=== PATIENT | female | born 1960 | race Caucasian/White ===

== ENCOUNTER → 2016-12-26 | Day surgery (SDC) | payer OTHER ==
[~2016-12-26] VITALS: Ht 177.8 cm; Wt 92.7 kg
[~2016-12-26] MED LIST: *HYDROmorphone PF 1 MG VIAL PERIprocedural Use ONLY ONE; *ONDANSETRON 4 MG VIAL PERIprocedural Use ONLY ONE; *PROMETHAZINE 25 MG/ML VIAL PERIprocedural use ONLY ONE; ACETAMINOPHEN 1000 MG/100 ML VIAL IV ONE; BUPIVACAINE HCL PF 0.25% 30 ML VIAL ONE; CHLORHEXIDINE GLUCONATE 2 % 1 PACK (2 CLOTHS) TOPICAL PRN; CHLORHEXIDINE GLUCONATE 4% SOLN 120 ML BTL TOPICAL SCH; DEXAMETHASONE SOD PHOS 4 MG/ML VIAL ONE; DO NOT ADM ANY ANTICOAGULANT DRUGS PRN; FAMOTIDINE 20 MG/2 ML VIAL ONE; HYDR25TA5 PO; INSULIN HUMAN REGULAR 1,000 UNITS/10 ML VIAL SQ PRN; KETOROLAC TROMETHAMINE 30 MG/ML (IVP) VIAL IVP ONE; LACTATED RINGER'S 1000 ML IV PRN; LEVO75TA3 PO; LIDOCAINE HCL 1% 50 ML VIAL ONE; METOPROLOL TARTRATE 25 MG TAB PO PRN; MIDAZOLAM HCL 2 MG/2 ML VIAL ONE; MORPHINE SULFATE 4 MG/ML INJ IV PUSH PRN; NEOSTIGMINE 3 MG/3 ML SYR IV ONE; ONDANSETRON HCL 4 MG/2 ML VIAL IV PRN; ONDANSETRON HCL 4 MG/2 ML VIAL IV PUSH ONE; PERC5TAB12 PO; POVIDONE IODINE 5% (ANTISEPSIS KIT) 4 APPLICATIONS EACH NARE PRN; PROPOFOL 200 MG/20 ML AMP IV ONE; PROT40TA PO; SODIUM CHLORID 0.9% 500 ML IV PRN; SODIUM CHLORIDE 0.9% FLUSH 10 ML FLUSH IV FLUSH PRN; SODIUM CHLORIDE 0.9% FLUSH 10 ML FLUSH IV FLUSH SCH; VANCOMYCIN 1000 MG/NS 250 ML (for <70 kg) IV SCH; ceFAZolin 2 GM PREMIX 50 ML IV SCH; fentaNYL CITRATE 250 MCG/5 ML AMP ONE; oxyCODONE/ACETAMINOPHEN 5 MG/325 MG TAB PO PRN
[2016-12-26 10:50] VITALS: BP 140/84; PULSE 65; RESP 18; TEMP 98.3; O2SAT 97
--- NOTE | 2016-12-26 11:15 | EKG ---
Date Performed: 12/26/2016 Time Performed: 10:18:37 PTAGE: 56 years EKG: SINUS BRADYCARDIA MINIMAL ST DEPRESSION BORDERLINE ECG PREVIOUS TRACING : 05/09/2012 10.55 Compared to the previous tracing, previously non-specific S T/T wave changes, now with minimal ST depressions DOCTOR: Estuardo Blank Interpretating Date/Time 12/26/2016 11:14:39
--- NOTE | 2016-12-26 14:57 | PD.OP ---
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 The operative extremity was then confirmed with the patient, the operative surgeon, anesthesia, and nursing staff. The patient was then transferred to the operative table and placed in the prone position. All bony prominences were well padded at this time. A nonsterile tourniquet was placed on the RIGHT lower extremity The lower extremity was sterilely prepped and draped in the usual sterile fashion. The extremity was elevated and the tourniquet was inflated to 250 mmHg. After all bony and soft tissue land robertson were identified, a 6 cm longitudinal incision was made in line with the Achilles tendon. Achilles tendon was split in half from 3-4 cm proximally and extending distally onto its insertion on the calcaneus. Both halves of the tendon were detached distally exposing a large calcaneal exostosis as well as a large Fahad exostosis. Using an oscillating saw the Fahad as well as the posterior calcaneal exostosis were resected. The ends of the tendon were carefully debrided and cleaned off any devitalized and calcified tissue. 2 loaded swivel lock lock 4.4 mm arthrex anchors were placed about 1cm proximal to the achiles insertion. The sutures were double ended and passed through the center of each halves of the free tendon. 2 knotless swivel lock anchors holes were drilled and placed at the Achilles insertion site. While holding tension, one limb from each swivel lock anchors were loaded onto the knotless anchors and secured in place. The repair was excellent and remained intact through plantar flexion. The split tendon was repaired with #1 Vicryl. Tourniquet was released. The wound was thoroughly irrigated. Hemostasis obtained. The wound was closed with 3-0 Vicryl in the subcutaneous and 4-0 Monocryl. Sterile dressing was applied. Patient was placed in a well-padded short leg posterior splint in resting 30 deg plantar flexed position. The patient was transferred back Postanesthesia Care Unit. The patient tolerated the procedure well. There were no complications. Implants: 4x Swivel lock Arthrex suture anchor Leander Kim Jr., MD Dec 26, 2016 14:57
--- NOTE | 2016-12-26 16:22 | RADRPT ---
EXAM DATE/TIME: 12/26/2016 14:03 [facility] COMPARISON: No previous studies available for comparison. INDICATIONS : Right heel exostosis excision. MEDICAL HISTORY : Unobtainable. SURGICAL HISTORY : Unobtainable. ENCOUNTER: Initial ACUITY: 1 day PAIN SCORE: Non-responsive. LOCATION: Right heel FINDINGS: 2 intraoperative spot images of the right foot. Calcaneal spur noted. Soft tissue defect seen posteri ashley. CONCLUSION: Intraoperative images of right heel. Fortino Lennon MD on December 26, 2016 at 16:20 Board Certified Radiologist. This report was verified electronically.
[2016-12-26 17:48] VITALS: BP 121/74; PULSE 55; RESP 16; TEMP 97.5; O2SAT 100
== END | disposition home or self-care (01) ==
LOC: HSDC 09:52
PROVIDERS: ATTEND Orthopaedic Surgery
DX: M92.61 Juvenile osteochondrosis of tarsus, right ankle (principal); M76.61 Achilles tendinitis, right leg; E03.9 Hypothyroidism, unspecified; I10 Essential (primary) hypertension; K21.9 Gastro-esophageal reflux disease without esophagitis; Z87.891 Personal history of nicotine dependence; Z88.5 Allergy status to narcotic agent
CPT/HCPCS: 28119; 73650; 76000; 86850; 86900; 86901; 93005; 94150; C1713; J0131; J0690; J1100; J1170; J1885; J2250; J2405; J2550; J2710; J3010; J3370; J7050